=== PATIENT | male | born 2000 | race Two or more races ===

== ENCOUNTER → 2022-12-31 | Emergency (ER) | payer OTHER | LOC: ER 01:32 | DX: F10.129 Alcohol abuse with intoxication, unspecified (principal); Y90.9 Presence of alcohol in blood, level not specified; V89.2XXA Person injured in unspecified motor-vehicle accident, traffic, initial encounter; Y93.89 Activity, other specified; Y92.89 Other specified places as the place of occurrence of the external cause; Y99.8 Other external cause status ==